=== PATIENT | female | born 2005 | race Caucasian/White ===

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

== ENCOUNTER 2023-01-20 23:00 | Emergency (ER) | payer OTHER, SELFPAY ==
--- NOTE | ~2023-01-20 | MR_ITS ---
EXAMINATION: MRI ABDOMEN WITHOUT CONTRAST MRI PELVIS WITHOUT CONTRAST CLINICAL INFORMATION: 17-year-old female with history of right lower quadrant pain during . Evaluate for appendicitis. COMPARISON: None TECHNIQUE: Noncontrast multiplanar, multisequence MR imaging examination of the abdomen and pelvis is performed on a high-field magnet. FINDINGS: ABDOMEN: Lung bases are unremarkable. Liver has normal size, contour and parenchymal signal on these noncontrast images. No focal hepatic lesion or intrahepatic bile duct dilatation. Gallbladder is physiologically distended and has normal wall thickness. No evidence of cholelithiasis. Common bile duct is 0.3 - 0.4 cm diameter and has normal smooth contour. Pancreas is normal. No pancreatic edema, ductal dilatation or peripancreatic fluid. Spleen is normal. Adrenal glands are normal. Kidneys are normal in size and have normal cortical signal. No renal mass or hydronephrosis. No perinephric fluid collection. There are no noncontrast imaging findings to suggest presence of pyelonephritis. Stomach is unremarkable. No dilated loops of bowel. There is no edematous thickening of the bowel diaz. Although the appendix is not definitively seen, there is no focal inflammatory change in the pericecal region. There is no evidence of any dilated thick-walled tubular structure emanating from the region of the cecum. Small amount of simple appearing free fluid is present in the abdomen and pelvis. There is no evidence of any focal organized fluid collection. The abdominal wall is normal. PELVIS: Urinary bladder is well distended and has normal wall thickness. The uterus is anteverted and anteflexed and endometrium measures up to 2.3 cm AP in this patient with history of . Query if there has been any outside pelvic ultrasound imaging to confirm presence of a viable intrauterine gestation. No uterine leiomyoma. There appears to be a 2 cm cm corpus luteum of the left ovary. No suspicious adnexal lesion. No pelvic lymphadenopathy. Pelvic bones and proximal femurs are normal. The visualized lower thoracic and lumbar vertebra are normal. No suspicious osseous lesion. MR/MR abdomen wo con IMPRESSION: * Small amount of simple appearing free fluid is present in the abdomen and pelvis, and there is no organized fluid collection. * Although the appendix is not definitively seen, there are no focal inflammatory changes in the right lower quadrant. * No hydronephrosis. No acute pathology in the abdomen. * Given the history of , query if there has been any recent pelvic ultrasound imaging to confirm presence of a viable intrauterine gestation.
[2023-01-20 23:14] VITALS: BP 105/52; BP 94/56; PULSE 62; PULSE 67; RESP 20; TEMP 36.4; O2SAT 100; BMI 15.4
[2023-01-20 23:38] LABS: Hemoglobin 10.8 g/dl (12.0-16.0); Mean Corpuscular HGB Conc 33.8 g/dl (31.0-35.0); Mean Corpuscular Hemoglobin 29.3 pg (27.0-33.0); Mean Platelet Volume 11.1 fL (9.4-12.3); Platelet Count 214 X10*3/uL (160-400); Red Blood Count 3.68 X10*6/uL (4.20-5.50); Red Cell Distribution Width 13.7 % (11.0-16.0); White Blood Count 7.1 X10*3/uL (4.8-10.8)
[2023-01-20 23:54] LABS: Alanine Aminotransferase 14 U/L (0-31); Albumin Level 3.6 g/dL (3.5-5.0); Alkaline Phosphatase 49 U/L (39-117); Anion Gap 8 (12-20); Aspartate Amino Transferase 17 U/L (5-31); Bilirubin Total 0.3 mg/dL (0.0-1.0); Blood Urea Nitrogen 8 mg/dL (9-16); Calcium 8.2 mg/dL (8.4-10.2); Carbon Dioxide 21 mmol/L (22-29); Chloride 111 mmol/L (96-108); Creatinine Clr Calc Pharmacy 98.2; Estimated Glomerular Filt Rate > 60; Glucose Random 89 mg/dL (60-115); Potassium 4.4 mmol/L (3.3-5.1); Sodium 136 mmol/L (135-145); Total Protein 5.5 g/dL (6.5-8.0)
[2023-01-21 01:42] VITALS: BP 94/57; PULSE 75; RESP 15; O2SAT 100
[2023-01-21 03:51] VITALS: BP 95/48; PULSE 70; RESP 15; O2SAT 98
--- NOTE | 2023-01-21 04:35 | ED.ABDPAIN ---
HPI - Abdominal Pain General Chief Complaint: Abdominal Pain Stated Complaint: abdominal pain Time Seen by Provider: 01/21/23 04:22 Source: patient and other (Significant other) Mode of arrival: ambulatory Limitations: no limitations History of Present Illness HPI narrative: 17-year-old female who presents emergency department for evaluation of nausea, abdominal pain. The patient states she was seen at [facility] yesterday for her abdominal pain. She states she was diagnosed with a urinary tract infection. Based on her discharge paperwork she was treated with morphine, Toradol, normal saline and ceftriaxone IV. She was then sent home with a prescription for cephalexin and I rated deemed. She states that she was feeling fine until around 21:00 hours when she developed severe right lower quadrant abdominal pain. She states the pain is a constant pain that does radiate to her back. The pain is 10/10. She has had associated nausea and vomiting. She denied fever but she states she did have chills. Patient states that she has been getting frequent urinary tract infections and has been getting them every month the last several months. Related Data Previous Rx's Medication Instructions Recorded clonazepam 0.5 mg tablet 0.5 mg PO BID 30 days #60 tabs 08/19/22 nicotine (polacrilex) 2 mg gum 2 mg buccal Q2H PRN Nicotine 08/19/22 Cravings 30 days #120 ea sertraline 25 mg tablet 25 mg PO DAILY 30 days #30 tabs 08/19/22 Allergies Allergy/AdvReac Type Severity Reaction Status Date / Time amoxicillin Allergy Unknown Unknown Verified 01/20/23 23:17 Review of Systems Review of Systems Yes all other systems are reviewed and are negative [facility] Past Medical History [facility] Narrative: Past medical history: None. Past surgical history: None. Social history: She does smoke cigarettes. She does drink alcohol. She smokes marijuana once or twice month. Medical History (Updated 01/21/23 @ 06:51 by Garett Rushing MD) Routine medical exam Social History Social History Household Members: Other Patient Tobacco Use Status: Current everyday Tobacco user Tobacco use type: Cigarette Advance Directives: No Advance Directives Information Provided: Yes Patient : Yes service: No Physical Exam ED Vital Signs: Vital Signs - 24 hr 01/20/23 23:14 01/21/23 01:42 01/21/23 03:51 Temperature 97.6 F Pulse Rate 67 75 70 Respiratory Rate 20 15 15 Blood Pressure 105/52 L 94/57 L 95/48 L Pulse Oximetry 100 100 98 Oxygen Delivery Method Room Air Room Air Room Air 01/21/23 05:55 Temperature Pulse Rate 58 Respiratory Rate 16 Blood Pressure 94/58 L Pulse Oximetry 99 Oxygen Delivery Method Room Air BMI result Body Mass Index 15.4 Const Other: Awake, alert, female patient, very pleasant and cooperative, does not appear to be in distress, very low BMI of 15.4 P HENMT Head: Yes normal to inspection, Yes normocephalic and Yes atraumatic Ears: external ears normal General nose exam: Normal external nose present Face and sinus: Yes normal facial exam Mouth: Normal oral and palatal mucosa present Throat: Yes posterior oropharynx normal Eyes General: appearance normal, both eyes and all related structures Pupils: Equal, round and reactive pupils present Neck Neck: Yes normal visual inspection, Yes no lymphadenopathy, Yes trachea midline and Yes supple Chest Chest palpation & inspection: normal inspection of the chest and normal palpation of entire chest wall Resp Effort & Inspection: normal respiratory effort and able to speak in complete sentences Auscultation: clear to auscultation bilaterally Cardio Rate: regular rate Rhythm: regular rhythm Heart sounds: S1 normal heart sound present, S2 normal heart sound present and no murmurs GI Other: Very thin abdomen, moderate to severe right lower quadrant tenderness, mild epigastric tenderness, bilateral CVA tenderness General: Yes no CVA tenderness Back/Spine/Pelvis Back: no CVA tenderness Skin General skin exam: no rashes or lesions noted Neuro Cranial nerves: Yes CN's II-XII intact bilaterally and Yes Equal, round and reactive pupils present Cognition (Neuro): normal cognition Motor exam (neuro): 5/5 motor strength present throughout Extrem General: Yes normal to inspection Psych Appearance: grossly normal Speech and movement: Normal speech and movement present Affect: normal affect Attitude: cooperative Thought process: Normal thought process present Thought content: Normal thought content present Medical Decision Making Medical Decision Making MDM Narrative: 17-year-old female who presents emergency department for evaluation of abdominal pain which began last night around 21:00 hours. You days prior the patient was at [facility] and diagnosed with a urinary tract infection, she was treated with ceftriaxone, Toradol IV and morphine IV. She also received a L of normal saline and was discharged on cephalexin and Pyridium. Patient's abdominal exam revealed significant right lower quadrant tenderness and bilateral CVA tenderness. I did order laboratory evaluation to include CBC, CMP, lipase, urinalysis, quantitative beta hCG. Given her localize right lower quadrant tenderness, CT scan of the abdomen pelvis with IV contrast was also ordered. Patient was ordered to get morphine 2 mg IV, Toradol 15 mg IV and Zofran 4 mg IV. She will also be treated with normal saline IV x1 L. 0524: Laboratory interpretation by me is as follows: Normal WBC 7100. Anemia H&H of 10.8 and 32. Normal lipase. Quantitative beta-hCG was 67. Patient's last menstrual period was 12/18/22 which would make her 4 weeks 6 days . I canceled the patient's CT scan and ordered an MRI of her abdomen and pelvis to evaluate for possible appendicitis. 0648: Patient's urinalysis revealed positive nitrates, moderate leukocyte esterase. Microscopic revealed 6-10 RBCs, 0-5 WBCs 11-20 squamous cells and no bacteria-this is a non clean catch specimen. The patient has continued to have significant abdominal pain and got only minimal relief with the above treatment. Patient was ordered to get morphine 4 mg IV. Patient is waiting for her MRI. At the end of my shift, the patient's care was turned over to my colleague, Dr. Josse Andrea. Lab Data 01/20/23 23:30 01/20/23 23:30 Labs: Lab Results 01/20/23 01/20/23 01/21/23 Range/Units 23:30 23:30 04:38 WBC 7.1 (4.8-10.8) X10*3/uL RBC 3.68 L (4.20-5.50) X10*6/uL Hgb 10.8 L (12.0-16.0) g/dl Hct 32.0 L (37.0-47.0) % MCV 87.0 (80.0-98.0) fL MCH 29.3 (27.0-33.0) pg MCHC 33.8 (31.0-35.0) g/dl RDW 13.7 (11.0-16.0) % Plt Count 214 (160-400) X10*3/uL MPV 11.1 (9.4-12.3) fL Absolute Nucleated RBC 0.000 (0.0-0.012) X10*3/uL Nucleated RBC % (auto) 0.0 (0.0-0.2) /100WBC Sodium 136 (135-145) mmol/L Potassium 4.4 (3.3-5.1) mmol/L Chloride 111 H (96-108) mmol/L Carbon Dioxide 21 L (22-29) mmol/L Anion Gap 8 L (12-20) BUN 8 L (9-16) mg/dL Creatinine 0.63 (0.5-1.4) mg/dL Estim Creat Clear Calc 98.2 Estimated GFR > 60 Random Glucose 89 (60-115) mg/dL Calcium 8.2 L (8.4-10.2) mg/dL Total Bilirubin 0.3 (0.0-1.0) mg/dL Direct Bilirubin < 0.2 (0.0-0.5) mg/dL AST 17 (5-31) U/L ALT 14 (0-31) U/L Alkaline Phosphatase 49 (39-117) U/L Total Protein 5.5 L (6.5-8.0) g/dL Albumin 3.6 (3.5-5.0) g/dL Lipase 10 (8-78) U/L Beta HCG, Quant 67 mIU/mL Urine Color [place] A Urine Appearance Clear Urine pH 6.0 (5.0-9.0) Ur Specific [place] 1.015 (1.005-1.025) Urine Protein Negative (Neg-Trace) mg/dL Urine Glucose (UA) Negative (Negative) mg/dL Urine Ketones Negative (Negative) mg/dL Urine Blood Negative (Negative) Urine Nitrite Positive H (Negative) Ur Leukocyte Esterase Moderate (2+) H (Negative) Urine RBC 6-10 H (0-2) /HPF Urine WBC 0-5 (0-5) /HPF Ur Squamous Epith Cells 11-20 (0-2) /HPF Urine Bacteria None Seen (None Seen) Hyaline Casts 0-2 (0-2) /LPF Medications Administered Discontinued Medications Generic Name Dose Route Start Last Admin Trade Name Freq PRN Reason Stop Dose Admin Sodium Chloride 1,000 mls @ 999 mls/hr 01/21/23 04:34 01/21/23 06:09 Ns IV 01/21/23 05:34 Infused .Q1H1M STA Infusion Ketorolac Tromethamine 15 mg 01/21/23 04:34 01/21/23 04:49 Ketorolac Tromethamine 15 Mg/Ml Vial IVPUSH 01/21/23 04:35 15 mg ONCE STA Administration Morphine Sulfate 2 mg 01/21/23 04:34 01/21/23 04:49 Morphine Sulfate 4 Mg/Ml Cartridge IVPUSH 01/21/23 04:35 2 mg ONCE STA Administration Protocol Ondansetron HCl 4 mg 01/21/23 04:34 01/21/23 04:49 Ondansetron Hcl 4 Mg/2 Ml Vial IVPUSH 01/21/23 04:35 4 mg ONCE ONE Administration Discharge Plan Discharge Clinical Impression: Abdominal pain, Patient Disposition: Still a Patient Prescriptions: No Action nicotine (polacrilex) 2 mg Gum 2 mg buccal Q2H PRN (Reason: Nicotine Cravings) 30 Days Qty: 120 0RF clonazepam 0.5 mg Tablet 0.5 mg PO BID 30 Days Qty: 60 0RF sertraline 25 mg Tablet 25 mg PO DAILY 30 Days Qty: 30 0RF
[2023-01-21 04:45] LABS: Appearance Urine Clear; Color Urine Orange; Glucose Urine UA Negative (Negative); Leukocyte Esterase Urine Moderate (2+) (Negative); Nitrite Urine Positive (Negative); Specific Gravity - Urine 1.015 (1.005-1.025); UMIC TRIGGER UACC YES; Urine Blood Negative (Negative); Urine Ketones Negative (Negative); Urine Protein Negative (Neg-Trace)
[2023-01-21] MEDS: Morphine Sulfate 4 MG/ML CARTRIDGE 2 MG IVPUSH (04:49)
[2023-01-21] MEDS: 0.9 % Sodium Chloride 1,000 ML 999 ML IV (04:49)
[2023-01-21] MEDS: ondansetron HCL 4 MG/2 ML VIAL IVPUSH (04:49)
[2023-01-21] MEDS: Ketorolac Tromethamine 15 MG/ML VIAL IVPUSH (04:49)
[2023-01-21 04:52] LABS: Bacteria Urine None Seen (None Seen); Hyaline Casts Urine 0-2 /LPF (0-2); UACC Culture Trigger YES; WBC Urine 0-5 /HPF (0-5)
[2023-01-21 04:58] LABS: Bilirubin Direct < 0.2 mg/dL (0.0-0.5); HCG Quantitative 67 mIU/mL; Lipase 10 U/L (8-78)
[2023-01-21 05:55] VITALS: BP 94/58; PULSE 58; RESP 16; O2SAT 99
[2023-01-21] MEDS: Morphine Sulfate 4 MG/ML CARTRIDGE IVPUSH (06:51)
[2023-01-21 07:33] VITALS: BP 104/54; PULSE 58; RESP 18; TEMP 36.8; O2SAT 100
[2023-01-21] MEDS: Acetaminophen 325 MG TABLET 975 MG PO (11:03)
--- NOTE | 2023-01-21 12:00 | PC.NURSE ---
CALLED MRI FOR UPDATE ON ABDOMINAL/PELVIC RESULTS. MRI NOT READ BY RADIOLOGIST YET. DISTANCE EDUCATION DIRECTOR WILL REACH OUT TO RADIOLOGIST.
[2023-01-21 12:26] VITALS: BP 104/66; BP 96/47; PULSE 62; PULSE 64; RESP 18; TEMP 36.8; O2SAT 100; O2SAT 99
[2023-01-21 14:41] VITALS: BP 118/84; PULSE 101; RESP 18; O2SAT 99
--- NOTE | 2023-01-21 14:42 | PC.NURSE ---
CLEARED FOR DISCHARGE. INSTRUCTIONS REVIEWED WITH PT. IV REMOVED. PT ASSISTED TO WHEELCHAIR. BOYFRIEND PUSHED PT OUT.
== END 2023-01-21 14:49 | disposition home or self-care (01) ==
PROVIDERS: Emergency Provider Emergency Medicine Emergency Medical Services; PCP Internal Medicine
DX: O26.91 Pregnancy related conditions, unspecified, first trimester (principal); R10.2 Pelvic and perineal pain; Z3A.01 Less than 8 weeks gestation of pregnancy; Z79.899 Other long term (current) drug therapy
CPT/HCPCS: 36415; 72195; 74181; 80053; 81001; 82248; 83690; 84702; 85027; 87086; 96361; 96374; 96375; 96376; 99285; J1885; J2270; J2405